=== PATIENT | female | born 1995 | race Caucasian/White ===

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

== ENCOUNTER 2018-12-03 16:12 | Emergency (ER) | payer BC ==
[~2018-12-03] VITALS: Ht 167.6 cm; Wt 93.0 kg
[~2018-12-03 16:12] MED LIST changes: +DEPO-ESTRADIO5 MG/ML IM
[2018-12-03] MEDS ORDERED: FLUOXETINE HCL60 MG PO (16:42)
[2018-12-03] MEDS ORDERED: SUMATRIPTAN SUC50 MG PO (16:43)
[2018-12-03] MEDS ORDERED: CILOXAN5 ML OD (16:52)
== END 2018-12-03 16:58 | disposition home or self-care (01) ==
LOC: ED 16:12
DX: H10.9 Unspecified conjunctivitis (principal); Z79.899 Other long term (current) drug therapy
CPT/HCPCS: 99283